=== PATIENT | male | born 1945 | race Caucasian/White ===

== ENCOUNTER 2022-11-11 12:38 | Outpatient (CLI) | payer MEDICARE | END 2022-11-11 23:59 | disposition critical access hospital (66) | LOC: EMS 12:38 | DX: R41.82 Altered mental status, unspecified (principal); R53.1 Weakness; R63.4 Abnormal weight loss; R63.8 Other symptoms and signs concerning food and fluid intake; R62.7 Adult failure to thrive; F03.90 Unspecified dementia, unspecified severity, without behavioral disturbance, psychotic disturbance, mood disturbance, and anxiety | CPT/HCPCS: A0425; A0429 ==

== ENCOUNTER 2022-11-11 13:00 | Observation (INO) | payer MEDICARE ==
[2022-11-11] MEDS ORDERED: SODIUM CHLORIDE 0.9% 1,000 ML IV STA ×2 (13:21→14:11)
[2022-11-11] MEDS ORDERED: SODIUM CHLORIDE 0.9% 500 ML IV STA (13:21)
[2022-11-11 13:36] LABS: BASOPHILS % (AUTO) 0.3 %; EOSINOPHILS # (AUTO) 0.1 10^3/uL (0.0-0.7); EOSINOPHILS % (AUTO) 0.5 %; HCT - HEMATOCRIT 46.8 % (42.0-52.0); HGB - HEMOGLOBIN 15.2 g/dL (14.0-18.0); LYMPHOCYTES # (AUTO) 0.8 10^3/uL (1.5-3.5); MEAN CORPUSCULAR HEMOGLOBIN 29.4 pg (27.0-31.0); MEAN CORPUSCULAR HGB CONC 32.5 g/dL (32.0-36.0); MEAN CORPUSCULAR VOLUME 90.5 fL (80.0-94.0); MEAN PLATELET VOLUME 10.9 fL (7.4-11.4); MONOCYTES % (AUTO) 8.1 %; NEUTROPHILS # (AUTO) 9.9 10^3/uL (1.5-6.6); NEUTROPHILS % (AUTO) 83.1 %; PLT - PLATELET COUNT 179 10^3/uL (130-450); RED BLOOD COUNT 5.17 10^6/uL (4.70-6.10); RED CELL DISTRIBUTION WIDTH 14.7 % (12.0-15.0); WHITE BLOOD COUNT 11.9 x10^3/uL (4.8-10.8)
--- NOTE | 2022-11-11 13:43 | ED Physician Documentation ---
History of Present Illness - Stated complaint Stated Complaint: AMS - Chief complaint Chief Complaint: Neuro - History obtained from History obtained from: Family (), EMS - History of Present Illness Timing: Other (several months, gradually worsening.) Pain level max: 0 Pain level now: 0 - Additonal information Additional information: 77-year-old male Brought in by EMS today after his called 911. 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 EMS does not know any medical history on the patient. They state that the told him he has dementia and has been declining progressively over the last 6 to 8 months. They state they do not know any other information. When the patient's arrived to the emergency department, she states that they are from [place] and have been here since COVID when he had a knee surgery in 2019. They have been trying to get back home but because of the patient's condition they have been unable to do so. She states that the patient quit drinking any fluid several days ago. She states he has had hardly anything to eat over the past 2 weeks. She states that they do not want feeding tube, CPR, dialysis, etc. She states that she has been speaking with [facility] but there [facility] is [facility], so they were told that if the patient is admitted to the hospital they can transfer him from [place] to [facility]. Review of Systems Constitutional: denies: Fever Nose: denies: Rhinorrhea / runny nose, Congestion Respiratory: denies: Cough GI: denies: Vomiting Skin: denies: Rash PD PAST MEDICAL HISTORY - Past Medical History Past Medical History: Yes Neuro: Dementia - Past Surgical History Past Surgical History: Yes Ortho: Knee replacement - Present Medications Home Medications: Ambulatory Orders Medication Instructions Recorded Confirmed Aspirin [Aspirin EC] 81 mg PO BID 11/11/22 11/11/22 Calcium Carbonate [Calcium] 600 mg PO QPM 11/11/22 11/11/22 Cholecalciferol (Vitamin D3) 2,000 unit PO QPM 11/11/22 11/11/22 [Vitamin D3] Colesevelam HCl [Welchol] 625 mg PO DAILY 11/11/22 11/11/22 Cyanocobalamin (Vitamin B-12) 2,500 mcg PO DAILY 11/11/22 11/11/22 [Vitamin B-12] Lipase/Protease/Amylase 1 PO DAILY 11/11/22 [Pancrelipase Dr 5,000/17,000/24,000 Retirement] Memantine [Namenda] 10 mg PO BID 11/11/22 11/11/22 Oxycodone HCl/Acetaminophen 1 each PO BID PRN 11/11/22 11/11/22 [Percocet 5-325 mg Tablet] Simvastatin [Zocor] 40 mg PO QPM 11/11/22 11/11/22 Terazosin [Hytrin] 5 mg PO QPM 11/11/22 11/11/22 Turmeric PO DAILY 11/11/22 - Allergies Allergies/Adverse Reactions: Allergies Allergy/AdvReac Type Severity Reaction Status Date / Time No Known Drug Allergies Allergy Verified 11/11/22 14:27 - Living Situation Living Situation: reports: With family Living Arrangement: reports: At home - Social History Does the pt smoke?: No Does the pt drink ETOH?: No Does the pt have substance abuse?: No - Family History Family history: reports: Non contributory PD ED PE NORMAL - Vitals Vital signs reviewed: Yes - General General: Other (Thin, frail, elderly male.) - HEENT HEENT: Other (Dry lips, for tongue, sunken eyes) - Neck Neck: Supple, no meningeal sign - Cardiac Cardiac: RRR - Respiratory Respiratory: No respiratory distress, Clear bilaterally - Abdomen Abdomen: Soft, Non tender, Non distended - Derm Derm: Other (cool, dry, poor skin turgor) - Extremities Extremities: No edema - Neuro Neuro: Other (non-responsive) Results - Vitals Vitals: Vital Signs - 24 hr 11/11/22 11/11/22 13:08 14:16 Temperature 36.8 C Heart Rate 102 H 92 Respiratory 16 14 Rate Blood Pressure 148/98 H 158/102 H O2 Saturation 95 95 Oxygen O2 Source Room air - EKG (time done) 1328 EKG releavant findings:: EKG personally interpreted by author of this note. Relevant findings are: Rate: Rate (enter#) (102) Rhythm: Sinus tachycardia, Other (PVC) Intervals: Normal VT QRS: Normal Ischemia: Normal ST segments - Labs Labs: Laboratory Tests 11/11/22 11/11/22 11/11/22 13:26 13:29 13:29 WBC 11.9 H RBC 5.17 Hgb 15.2 Hct 46.8 MCV 90.5 MCH 29.4 MCHC 32.5 RDW 14.7 Plt Count 179 MPV 10.9 Neut # (Auto) 9.9 H Lymph # (Auto) 0.8 L Saunders # (Auto) 1.0 Eos # (Auto) 0.1 Baso # (Auto) 0.0 Absolute Nucleated RBC 0.00 Nucleated RBC % 0.0 Sodium 141 Potassium 5.8 H Chloride 109 Carbon Dioxide 17 L Anion Gap 15.0 H BUN 122 H* Creatinine 13.2 H* Estimated GFR (MDRD) 4 L Glucose 127 H Calcium 8.7 Phosphorus 7.8 H Magnesium 2.8 Total Bilirubin 1.7 H AST 56 H ALT 48 Alkaline Phosphatase 83 Total Creatine Kinase 714 H Total Protein 7.0 Albumin 3.3 Globulin 3.7 Albumin/Globulin Ratio 0.9 L Lipase 24 Urine Color Urine Clarity Urine pH Ur Specific [place] Urine Protein Urine Glucose (UA) Urine Ketones Urine Occult Blood Urine Nitrite Urine Bilirubin Urine Urobilinogen Ur Leukocyte Esterase Urine RBC Urine WBC Ur Squamous Epith Cells Urine Bacteria Ur Microscopic Review Urine Culture Comments Nasal Adenovirus (PCR) NOT DETECTED Nasal B. parapertussis DNA (PCR) NOT DETECTED Nasal Coronavir 229E PCR NOT DETECTED Nasal Coronavir HKU1 PCR NOT DETECTED Nasal Coronavir NL63 PCR NOT DETECTED Nasal Coronavir OC43 PCR NOT DETECTED Nasal Enterovir/Rhinovir PCR NOT DETECTED Nasal Influenza B PCR NOT DETECTED Nasal Influenza A PCR NOT DETECTED Nasal Parainfluen 1 PCR NOT DETECTED Nasal Parainfluen 2 PCR NOT DETECTED Nasal Parainfluen 3 PCR NOT DETECTED Nasal Parainfluen 4 PCR NOT DETECTED Nasal RSV (PCR) NOT DETECTED Nasal B.pertussis DNA PCR NOT DETECTED Nasal C.pneumoniae (PCR) NOT DETECTED Jamal Human Metapneumo PCR NOT DETECTED Nasal M.pneumoniae (PCR) NOT DETECTED Nasal SARS-CoV-2 (PCR) NOT DETECTED 11/11/22 13:35 WBC RBC Hgb Hct MCV MCH MCHC RDW Plt Count MPV Neut # (Auto) Lymph # (Auto) Saunders # (Auto) Eos # (Auto) Baso # (Auto) Absolute Nucleated RBC Nucleated RBC % Sodium Potassium Chloride Carbon Dioxide Anion Gap BUN Creatinine Estimated GFR (MDRD) Glucose Calcium Phosphorus Magnesium Total Bilirubin AST ALT Alkaline Phosphatase Total Creatine Kinase Total Protein Albumin Globulin Albumin/Globulin Ratio Lipase Urine Color DARK YELLOW Urine Clarity CLEAR Urine pH 6.0 Ur Specific [place] 1.015 Urine Protein NEGATIVE Urine Glucose (UA) NEGATIVE Urine Ketones NEGATIVE Urine Occult Blood SMALL H Urine Nitrite NEGATIVE Urine Bilirubin NEGATIVE Urine Urobilinogen 0.2 (NORMAL) Ur Leukocyte Esterase NEGATIVE Urine RBC 0-5 Urine WBC 0-3 Ur Squamous Epith Cells NONE SEEN Urine Bacteria Rare Ur Microscopic Review INDICATED Urine Culture Comments NOT INDICATED Nasal Adenovirus (PCR) Nasal B. parapertussis DNA (PCR) Nasal Coronavir 229E PCR Nasal Coronavir HKU1 PCR Nasal Coronavir NL63 PCR Nasal Coronavir OC43 PCR Nasal Enterovir/Rhinovir PCR Nasal Influenza B PCR Nasal Influenza A PCR Nasal Parainfluen 1 PCR Nasal Parainfluen 2 PCR Nasal Parainfluen 3 PCR Nasal Parainfluen 4 PCR Nasal RSV (PCR) Nasal B.pertussis DNA PCR Nasal C.pneumoniae (PCR) Jamal Human Metapneumo PCR Nasal M.pneumoniae (PCR) Nasal SARS-CoV-2 (PCR) - Rads (name of study) cxr Relevant Findings:: Final report received, See rad report head Ct Relevant Findings:: Final report received, See rad report PD Medical Decision Making - ED course Complexity details: reviewed results, re-evaluated patient, considered differential, d/w family, d/w as400 consultant ED course: 77-year-old male with severe what appears to be 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 CBC shows an elevated white blood cell count at 11,900. Mainly neutrophils. Chemistry reveals a potassium of 5.8, BUN to creatinine ratio is severely elevated. Acute renal failure, creatinine 13.2. BUN 122 consistent with uremia and metabolic encephalopathy. Phosphorus is elevated at 7.8. Total CK is also elevated at 714. Urinalysis is consistent with dehydration as well. Patient was given IV fluids here. Discussed the poor prognosis with the patient's . She would like to try IV fluids. She does not want him to have dialysis, or any aerobic measures. Does not want central line and pressors. Discussed the case with the hospitalist, Dr. Piper who accepts. Social work will be consulted as well. Departure - Departure Disposition: 66 [facility] DC/Xfer Clinical Impression: Uremia, Dehydration, Hyperkalemia, Metabolic encephalopathy, Hyperphosphatemia Acute renal failure Qualifiers: Acute renal failure type: unspecified Qualified Code(s): N17.9 - Acute kidney failure, unspecified Dementia Qualifiers: Dementia type: unspecified type Dementia severity: severe Dementia behavioral or psychological symptom: without behavioral, psychotic, or mood disturbance or anxiety Qualified Code(s): F03.C0 - Unspecified dementia, severe, without behavioral disturbance, psychotic disturbance, mood disturbance, and anxiety Condition: Stable
[2022-11-11 13:51] LABS: BILIRUBIN,URINE NEGATIVE (NEGATIVE); GLUCOSE, URINE (UA) NEGATIVE (NEGATIVE); KETONES,URINE (UA) NEGATIVE (NEGATIVE); LEUKOCYTE ESTERASE, URINE NEGATIVE (NEGATIVE); NITRITE,URINE NEGATIVE (NEGATIVE); OCCULT BLOOD,URINE SMALL (NEGATIVE); PROTEIN,URINE NEGATIVE (NEGATIVE); UROBILINOGEN,URINE 0.2 (NORMAL) E.U./dL (NORMAL)
[2022-11-11 13:55] LABS: CLARITY,URINE CLEAR (CLEAR)
[2022-11-11 14:05] LABS: RBC,URINE 0-5 /HPF (0-5); WBC,URINE 0-3 /HPF (0-3)
[2022-11-11 14:06] LABS: BACTERIA,URINE Rare /HPF (None Seen); SQUAMOUS EPITHELIAL CELL,UR NONE SEEN (<= Few)
[2022-11-11 14:07] LABS: ALBUMIN 3.3 g/dL (3.2-5.5); ALBUMIN/GLOBULIN RATIO 0.9 (1.0-2.2); BILIRUBIN,TOTAL 1.7 mg/dL (0.2-1.0); CALCIUM 8.7 mg/dL (8.5-10.3); MAGNESIUM 2.8 mg/dL (1.7-2.8); PHOSPHORUS 7.8 mg/dL (2.5-4.6); POTASSIUM 5.8 mmol/L (3.5-5.0)
[2022-11-11 14:10] LABS: CREATININE 13.2 mg/dL (0.6-1.2)
--- NOTE | 2022-11-11 14:11 | XRAY Report ---
PROCEDURE: Chest 1 View X-Ray INDICATIONS: altered, aspiration TECHNIQUE: One view of the chest was acquired. COMPARISON: None. FINDINGS: Surgical changes and devices: None. Lungs and pleura: No pleural effusions or pneumothorax. Lungs are clear. Mediastinum: Mediastinal contours appear normal. Heart size is normal. Bones and chest wall: No suspicious bony lesions. Overlying soft tissues appear unremarkable. IMPRESSION: No acute pulmonary process. Reviewed by: Ev Mirza MD on 11/11/2022 2:10 PM PDT Approved by: Ev Mirza MD on 11/11/2022 2:10 PM PDT Station ID: [id number]
--- NOTE | 2022-11-11 14:39 | CT Report ---
PROCEDURE: HEAD WO INDICATIONS: altered mental status TECHNIQUE: Noncontrast 4.5 mm thick angled axial sections acquired from the foramen magnum to the vertex. For r adiation dose reduction, the following was used: automated exposure control, adjustment of mA and/or kV according to patient size. COMPARISON: None. FINDINGS: Image quality: Good CSF spaces: Basal cisterns are patent. Lateral ventricles are symmetric. Volume: Vascular calcifications. Periventricular white matter disease is commonly seen with chronic m icroangiopathy. Volume loss is present. These findings are moderate to severe Brain: No intracranial hemorrhage. Najera-white differentiation is grossly maintained. Craniofacial structures: No displaced fracture. Sinuses are clear. Orbits are intact. IMPRESSION: No acute radiographic abnormality. Likely chronic changes as above. If there is high concern for pare nchymal pathology, consider further evaluation with MRI. Reviewed by: Russell Sheffield MD on 11/11/2022 2:38 PM PDT Approved by: Russell Sheffield MD on 11/11/2022 2:38 PM PDT Station ID: [id number]
[2022-11-11 14:53] LABS: B. PARAPERTUSSIS- RESP PCR PAN NOT DETECTED; B. PERTUSSIS- RESP PCR PANEL NOT DETECTED; C. PNEUMONIAE- RESP PCR PANEL NOT DETECTED; CORONAVIRUS 229E-RESP PCR NOT DETECTED; CORONAVIRUS HKU1-RESP PCR NOT DETECTED; CORONAVIRUS NL63-RESP PCR NOT DETECTED; CORONAVIRUS OC43-RESP PCR NOT DETECTED; HUMAN METAPNEUMOVIRUS NOT DETECTED; INFLUENZA A- RESP PCR PANEL NOT DETECTED; INFLUENZA B - RESP PCR PANEL NOT DETECTED; M. PNEUMONIAE- RESP PCR PANEL NOT DETECTED; PARAINFLUENZA VIRUS 1 NOT DETECTED; PARAINFLUENZA VIRUS 2 NOT DETECTED; PARAINFLUENZA VIRUS 3 NOT DETECTED; PARAINFLUENZA VIRUS 4 NOT DETECTED; RHINOVIRUS/ENTEROVIRUS NOT DETECTED; RSV- RESP PCR PANEL NOT DETECTED; SARS-CoV-2 -RESP PCR PANEL NOT DETECTED
[2022-11-11] MEDS ORDERED: SODIUM CHLORIDE FLUSH 0.9% 10 ML SYRINGE IVP PRN (16:30)
[2022-11-11] MEDS ORDERED: ONDANSETRON ODT 4 MG TABLET TL PRN (16:30)
[2022-11-11] MEDS ORDERED: ONDANSETRON 4 MG/2 ML VIAL IVP PRN (16:30)
[2022-11-11] MEDS ORDERED: ACETAMINOPHEN 325 MG TABLET PO PRN (16:30)
--- NOTE | 2022-11-11 16:37 | HISTORY & PHYSICAL EXAMINATION ---
Chief Complaint - Chief Complaint Chief Complaint: unconscious History of Present Illness - Admitted From Admitted From:: son's home - History Obtained From Records Reviewed: [facility] History obtained from: Exam Limitations: he is unresponsive - History of Present Illness HPI Comment/Other: He is an elderly gentleman who has end-stage dementia. His past medical history is that of hyperlipidemia, hypertension, benign prostatic hypertrophy. And he takes pancreatic insufficiency enzymes. He had his knee replacement done in 2019 for osteoarthritis. But his could not take care of him by herself so she brought him up to stay with [place]. It was meant to be a temporary situation until he could get his rehab done and then they would go back to [facility]. However COVID happened. They have been in their son's home, living with him, since that time. And they really felt like they could not get him back to his house in [facility] because his dementia prohibited him from traveling safely. He is profoundly deaf and because of his dementia will throw out his hearing ai ds. He last had hearing aids in place months ago. 6 months ago he started fighting them with regards to dressing. Walking. Became less and less ambulatory. 3 weeks ago he did not want to eat. He did not want to get out of bed at all. Then starting November 08 he has not gotten out of bed at all, and has not eaten or drank anything. He has been asleep this entire time. One of their sons flew in because he felt like dad was going to so he wanted to see him. Today the family felt that they needed to bring him in. Potassium is 5.8. BUN 122, creatinine 13.2. Phosphorus 7.8. Total bili 1.7. White cell count is 11.9. Urinalysis does not have infection. PCR panel is negative for any viral illnesses. Chest x-ray has no acute cardiopulmonary process. And head CT has no acute radiographic abnormality. 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 Moderate to severe. The patient is unresponsive. Comatose. The emergency room provider and I discussed the case. Most likely he has the late stages of dementia, on top of that a benign prostatic hypertrophy by medication and description. He is stopped eating and drinking. He is now in renal failure. would like us to hydrate him. She does not want a lot of things done at home but she would like him to be hydrated so he can return to baseline status of walking, talking. History - Past Medical History Cardiovascular: reports: High cholesterol Respiratory: reports: None Neuro: reports: Dementia Endocrine/Autoimmune: reports: None GI: reports: Pancreatitis : reports: Benign prostate hypertrophy, Retention, Incontinence, Other HEENT: reports: Chronic hearing loss Psych: reports: Depression, Anxiety Musculoskeletal: reports: Osteoarthritis Derm: reports: None MRSA Hx?: No - Past Surgical History General: reports: Cholecystectomy Ortho: reports: Knee replacement - Family & Social History Living arrangement: At home Living Situation: With family - POLST Patient has POLST: Yes Meds/Allgy - Home Medications Home Medications: Ambulatory Orders Medication Instructions Recorded Confirmed Aspirin [Aspirin EC] 81 mg PO BID 11/11/22 11/11/22 Calcium Carbonate [Calcium] 600 mg PO QPM 11/11/22 11/11/22 Cholecalciferol (Vitamin D3) 2,000 unit PO QPM 11/11/22 11/11/22 [Vitamin D3] Colesevelam HCl [Welchol] 625 mg PO DAILY 11/11/22 11/11/22 Cyanocobalamin (Vitamin B-12) 2,500 mcg PO DAILY 11/11/22 11/11/22 [Vitamin B-12] Lipase/Protease/Amylase 1 PO DAILY 11/11/22 [Pancrelipase Dr 5,000/17,000/24,000 Retirement] Memantine [Namenda] 10 mg PO BID 11/11/22 11/11/22 Oxycodone HCl/Acetaminophen 1 each PO BID PRN 11/11/22 11/11/22 [Percocet 5-325 mg Tablet] Simvastatin [Zocor] 40 mg PO QPM 11/11/22 11/11/22 Terazosin [Hytrin] 5 mg PO QPM 11/11/22 11/11/22 Turmeric PO DAILY 11/11/22 - Allergies Allergies/Adverse Reactions: Allergies Allergy/AdvReac Type Severity Reaction Status Date / Time No Known Drug Allergies Allergy Verified 11/11/22 14:27 Review of Systems - Other Findings Other Findings: This patient is comatose, unable to do a review of systems Prior Level of Functionality: His dementia has made him completely dependent on other people to feed him, prompting him to dress, and prompt him to bathe. In the last few weeks that his deteriorated even further. He does not want to take a bath. He pushed his down the stairs a year ago. He does not want to eat. He has become bedbound. Exam - Vital Signs Reviewed Vital Signs: Yes Vital Signs: Vital Signs x48h Temp Pulse Resp BP Pulse Ox 11/11/22 15:54 90 15 160/98 H 95 11/11/22 14:16 92 14 158/102 H 95 11/11/22 13:08 36.8 C 102 H 16 148/98 H 95 - Physical Exam General Appearance: positive: Other (Obtunded, unresponsive to sternal rub, lay ing on his back, with rhonchorous open mouth breathing) Eyes Bilateral: positive: PERRL (Sluggish pupils) ENT: positive: Dry mucous membranes ( Since she is not currently having diarrhea, I am holding off giving her steroids.) Neck: positive: No JVD. negative: Lymphadenopathy (R), Lymphadenopathy (L), Stiff neck Respiratory: positive: No respiratory distress, Other (Again, laying on his back, open mouth breathing with rhonchorous tubular breath sounds in both lung corrales). negative: Wheezes, Rales, Rhonchi Cardiovascular: positive: Regular rate & rhythm, Systolic murmur Abdomen: positive: No distention, Abnml bowel sounds (Hypoactive.), Other (He is still unresponsive unable to assess for guarding or rebound) Skin: positive: Dry, Pallor Extremities: positive: Pedal edema Neurologic/Psychiatric: positive: Other (No spontaneous movement, no spontaneous verbalization, no opening of eyes even with sternal rub or Babinski's) Babinski Reflex: Right: Absent, Left: Absent Conclusion/Plan - Problem List (1) Metabolic encephalopathy Conclusion/Plan: Profound and due to #2 with uremia. There is no evidence of infection, no anemia, no stroke. His medication list is stable. There is been no new medications such as benzodiazepines or opioids. Observation status to see if he responds to hydration (2) Acute renal failure Conclusion/Plan: He appears to have a combination of benign prostatic hypertrophy by history, so he could have some obstruction. But more than anything else he just stopped eating and drinking. He has had gradually diminishing p.o. intake for weeks now. 3 weeks ago he took another sharp turn, and then on November 08 just stopped altogether. does not want tube feedings. She is wanting IV fluids to make him more alert so that she can take care of him for a few days. She is hoping that hydration will buy him a few days for her to make arrangements for caregivers and then transition to hospice. Case management is already aware of the case and is already working with [facility] for arrangements. Qualifiers: Acute renal failure type: with acute tubular necrosis Qualified Code(s): N17.0 - Acute kidney failure with tubular necrosis (3) Dehydration Conclusion/Plan: By description of the , he has had gradually diminishing p.o. intake. This has been ongoing for weeks if not months. In the last month has been severe and then starting November 08 he has had absolutely nothing to eat or drink. He has been in bed asleep since that time. Plan: No NG tube feeds IV fluids, normal saline, at 100 cc an hour Recheck BMP daily (4) Hyperkalemia Conclusion/Plan: Due to renal failure. I will give him an amp of D50 and 10 IV push regular insulin. Recheck BMP an hour later. (5) Hyperphosphatemia Conclusion/Plan: Again due to renal failure. He does not have tumor lysis syndrome, muscle necrosis. He is not ingesting large amounts of phosphates. He is not able to have urinary excretion that keeps pace with his phosphate intake. Treatment is usually saline infusion. In treating of the hypocalcemia if is present. My plan is to just hydrate him (6) Dementia Conclusion/Plan: Since he is unable to eat or drink anything, I will not be resuming his Namenda. Also, at this late stage, is not doing any good. Plan is for him to regain some alertness to be able to stand and walk at home. Not much more than that. Then will make plans for appropriate caregivers, and most likely transition to hospice Qualifiers: Dementia type: unspecified type Dementia severity: severe Dementia beha vioral or psychological symptom: without behavioral, psychotic, or mood disturbance or anxiety Qualified Code(s): F03.C0 - Unspecified dementia, severe, without behavioral disturbance, psychotic disturbance, mood disturbance, and anxiety - Lab Results Lab results reviewed: Yes Fish Bones: 11/11/22 13:29 11/11/22 13:29 - Diagnostic Imaging Results Diagnostic Imaging Results: positive: Final report reviewed Core Measures - Anticipated LOS I expect patient to be DC'd or transferred within 96 hours.: Yes - DVT/VTE - Prophylaxis VTE/DVT Prophylaxis med ordered at admit?: Yes
[2022-11-11] MEDS: SODIUM CHLORIDE 0.9% 1,000 ML IV SCH (17:55)
[2022-11-11] MEDS: SODIUM CHLORIDE FLUSH 0.9% 10 ML SYRINGE IVP SCH (17:56)
[2022-11-11] MEDS ORDERED: INSULIN REGULAR HUMAN 300 UNIT/3 ML VIAL IVP ONE (20:05)
[2022-11-11] MEDS ORDERED: DEXTROSE 50% ABBOJECT 25 GM/50 ML SYRINGE IVP ONE (20:05)
[2022-11-12] MEDS: SODIUM CHLORIDE 0.9% 1,000 ML IV SCH (02:02)
[2022-11-12 05:45] LABS: BASOPHILS % (AUTO) 0.3 %; EOSINOPHILS # (AUTO) 0.1 10^3/uL (0.0-0.7); HCT - HEMATOCRIT 44.6 % (42.0-52.0); HGB - HEMOGLOBIN 14.2 g/dL (14.0-18.0); LYMPHOCYTES # (AUTO) 0.7 10^3/uL (1.5-3.5); MEAN CORPUSCULAR HEMOGLOBIN 29.3 pg (27.0-31.0); MEAN CORPUSCULAR HGB CONC 31.8 g/dL (32.0-36.0); MEAN CORPUSCULAR VOLUME 92.1 fL (80.0-94.0); MEAN PLATELET VOLUME 10.4 fL (7.4-11.4); MONOCYTES # (AUTO) 0.8 10^3/uL (0.0-1.0); MONOCYTES % (AUTO) 7.9 %; NEUTROPHILS # (AUTO) 8.3 10^3/uL (1.5-6.6); NEUTROPHILS % (AUTO) 82.7 %; PLT - PLATELET COUNT 179 10^3/uL (130-450); RED BLOOD COUNT 4.84 10^6/uL (4.70-6.10); RED CELL DISTRIBUTION WIDTH 14.6 % (12.0-15.0); WHITE BLOOD COUNT 10.1 x10^3/uL (4.8-10.8)
[2022-11-12 06:26] LABS: CALCIUM 9.1 mg/dL (8.5-10.3); POTASSIUM 4.9 mmol/L (3.5-5.0)
[2022-11-12] MEDS: SODIUM CHLORIDE FLUSH 0.9% 10 ML SYRINGE IVP SCH ×3 (07:03→18:15)
[2022-11-12] MEDS ORDERED: ACETAMINOPHEN 1,000 MG/100 ML 1,000 MG/100 ML BAG IV PRN (07:51)
[2022-11-12] MEDS ORDERED: DEXTROSE 5%-0.45% NACL 1,000 ML IV SCH (08:00)
[2022-11-12] MEDS: ENOXAPARIN 30 MG/0.3 ML SYRINGE SUBQ SCH (08:54)
--- NOTE | 2022-11-12 10:51 | PHARMACY PROGRESS NOTE ---
- Best Possible Medication History Admit Date and Time: 11/11/22 1630 Processed by: Nursing Medication History completed: Yes Patient Interview: Pt unable to participate Secondary Source(s): Spouse/Significant other Med list updated by nursing As the person ultimately responsible for medication therapy, providers are able to order a medication from an existing home medication list in [facility] via the "Reconcile Routine" prior to Confirmation of that medication by production support developer. Such practice is discouraged except when the physician, in their clinical judgment, deems that a medical need exists for a medication without regard to previous use.
[2022-11-12] MEDS ORDERED: hydrALAZINE 10 MG TABLET PO ONE (11:02)
[2022-11-12] MEDS ORDERED: hydrALAZINE INJ 20 MG/ML VIAL IVP ONE (11:29)
--- NOTE | 2022-11-12 11:41 | PROVIDER PROGRESS NOTE ---
Assessment/Plan - Problem List (1) Metabolic encephalopathy Assessment/Plan: Profound and due to #uremia from dehydration on top of pre-existing severe dementia. There is no evidence of infection, no anemia, no stroke. There is been no new medications such as benzodiazepines or opioids used, and he has not been able to swallow any meds for about 2 weeks. He did awaken this morning afyter being given iv fluids, he looks around, is pulling at edges of a wash cloth with both hands. I told her that since he is unable to take hydration by mouth and has an advanced directive for no IV hydration, this is not life-sustainable. Plan: Remain in Observation status Social work to discuss discharge location with the today Will be requesting Hospice care for end-of-life after [facility] (2) Hypernatremia Labs were all reviewed. This is from his underlying dehydration and having rec eived normal saline yesterday, not hypotonic solution Plan: We will change to D5 half NS After the IV fluids were changed, I had the discussion with the about no more IV hydration, therefore all IV fluids will be stopped. We will stop ordering lab (3) Acute renal failure Conclusion/Plan: He appears to have a combination of benign prostatic hypertrophy by history, so he could have some obstruction. He has had gradually diminishing p.o. intake for weeks now. 3 weeks ago he took another sharp turn, and then on November 08 just stopped oral intake altogether. did say at admission, she does not want tube feedings. She wanted IV fluids to make him more alert so that she could take care of him for a few days. She was hoping that hydration will buy him a few days for her to make arrangements for caregivers and then transition to hospice. Plan: Case management is already aware of the case and is already working with [facility] for arrangements. Plan to avoid nephrotoxins Plan to stop ordering labs Qualifiers: Acute renal failure type: with acute tubular necrosis Qualified Code(s): N17.0 - Acute kidney failure with tubular necrosis (4) Dehydration Conclusion/Plan: By description of the , he has had gradually diminishing p.o. intake. This has been ongoing for weeks if not months. In the last month oral intake was poor and then starting November 08 he has had absolutely nothing to eat or drink. He has been in bed asleep since that time. IV fluids were normal saline, at 100 cc an hour Plan: No NG tube feeds After the IV fluids were changed, I had the discussion with the about no more IV hydration, therefore all IV fluids will be stopped. We will stop ordering lab (5) Acute urinary retention As per the addendum in the admission H&P Plan: Since he will be going to hospice, we will continue with keeping the [facility] in for his comfort (6) Hyperphosphatemia Conclusion/Plan: Due to renal failure. He does not have tumor lysis syndrome, muscle necrosis. He is not ingesting large amounts of phosphates. He is not able to have urinary excretion that keeps pace with his phosphate intake. Plan: Treatment is usually saline infusion and treating of the hypocalcemia if is present. Our plan was to just hydrate him IV hydration to be stopped today, as per the 's discussion with me today and she showed me his advanced directives on paper that she brought in Will stop checking labs (7) Dementia Conclusion/Plan: Since he is unable to eat or drink anything, we did not be resume his Namenda. Also, at this late stage, the Namenda is not doing any good. Plan is for him was to regain some alertness. The voiced she expected him to be able to stand and walk at home. Then wiould make plans for appropriate caregivers. I spoke to the today at bedside at length. The patient was not able to hear because of his [place] and did not participate in the discussion. I told her that since he is unable to take hydration by mouth and has an advanced directive for no IV hydration, this is not life-sustainable. Plan: Social work to discuss discharge location with the today Transition to hospice Qualifiers: Dementia type: unspecified type Dementia severity: severe Dementia behavioral or psychological symptom: without behavioral, psychotic, or mood disturbance or anxiety Qualified Code(s): F03.C0 - Unspecified dementia, severe, without behavioral disturbance, psychotic disturbance, mood disturbance, and anxiety (8) Hyperkalemia Conclusion/Plan: Resolved Due to renal failure. He got an amp of D50 and 10 IV push regular insulin. - Current Meds Current Meds: Current Medications Generic Name Dose Route Start Last Admin Trade Name Freq PRN Reason Stop Dose Admin Enoxaparin Sodium 30 mg 11/12/22 09:00 11/12/22 08:54 Enoxaparin 30 Mg/0.3 Ml Syringe SUBQ 30 mg DAILY EMMA Administration Dextrose/Sodium Chloride 1,000 mls @ 100 mls/hr 11/12/22 08:00 11/12/22 08:54 D5.45ns IV 100 mls/hr .Q10H EMMA Administration Sodium Chloride 10 ml 11/11/22 17:00 11/12/22 08:54 Sodium Chloride Flush 0.9% 10 Ml Syringe IVP Not Given 0100,0900,1700 EMMA - Lab Result Fish Bone Diagrams: 11/13/22 05:02 11/13/22 05:02 - Additional Planning My Orders: My Active Orders 11/12/22 Clinical Swallow Evaluation [ST] Routine 11/12/22 07:51 Acetaminophen 1,000 mg/100 ml [Acetaminophen] 1,000 mg in 100 ml IV Q6HR 11/12/22 07:58 DIET [NPO] [DIET] 11/12/22 08:00 Dextrose 5%-0.45% NaCl [D5.45ns] 1,000 ml IV 100 mls/hr 11/12/22 21:00 Terazosin [Hytrin] 5 mg PO QPM Subjective - Subjective Patient Reports: Other (He awoke, waved back when I waved to him.) Nursing Reports: Other (He is not able to swallow, per RN clinical swallow eval, pudding just pools in cheeks) Objective Vital Signs: Vital Signs - 24 hr 11/11/22 11/11/22 11/11/22 13:08 14:16 15:20 Temperature 36.8 C 36.5 C Heart Rate 102 H 92 Heart Rate [ Brachial] Heart Rate [ 91 Radial] Respiratory 16 14 18 Rate Blood Pressure 148/98 H 158/102 H Blood Pressure 165/90 H [Left Brachial artery] Blood Pressure [Right Brachial artery] O2 Saturation 95 95 99 11/11/22 11/11/22 11/11/22 15:54 18:53 20:47 Temperature 36.6 C Heart Rate 90 Heart Rate [ 86 Brachial] Heart Rate [ Radial] Respiratory 15 16 Rate Blood Pressure 160/98 H Blood Pressure 166/93 H 160/98 H [Left Brachial artery] Blood Pressure [Right Brachial artery] O2 Saturation 95 95 11/11/22 11/12/22 11/12/22 23:46 04:30 08:05 Temperature 36.6 C 36.5 C 36.2 C L Heart Rate Heart Rate [ 87 86 83 Brachial] Heart Rate [ Radial] Respiratory 16 18 20 Rate Blood Pressure Blood Pressure 160/84 H [Left Brachial artery] Blood Pressure 160/88 H 168/96 H [Right Brachial artery] O2 Saturation 96 98 98 Oxygen O2 Source Room air I&O (Last 24 Hrs): Intake and Output Totals x24h 11/10/22 11/11/22 11/12/22 23:59 23:59 23:59 Intake Total 2931.667 1065 Output Total 1625 1525 Balance 1306.667 -460 General: Alert, Other (Cachectic, sunken eyes, muscle wasting) HEENT: Mucous membr. moist/pink, Other (edentulous) Neck: Supple Neuro: Alert, Disoriented, Non Focal, Other ([place]. Not communicating. Did not pass swallow screen.) Cardiovascular: Regular rate Respiratory: No respiratory distress Abdomen: Soft Extremities: No clubbing, No edema - Results Results: Laboratory Results WBC 10.1 x10^3/uL (4.8-10.8) 11/12/22 05:33 RBC 4.84 10^6/uL (4.70-6.10) 11/12/22 05:33 Hgb 14.2 g/dL (14.0-18.0) 11/12/22 05:33 Hct 44.6 % (42.0-52.0) 11/12/22 05:33 MCV 92.1 fL (80.0-94.0) 11/12/22 05:33 MCH 29.3 pg (27.0-31.0) 11/12/22 05:33 MCHC 31.8 g/dL (32.0-36.0) L 11/12/22 05:33 RDW 14.6 % (12.0-15.0) 11/12/22 05:33 Plt Count 179 10^3/uL (130-450) 11/12/22 05:33 MPV 10.4 fL (7.4-11.4) 11/12/22 05:33 Neut # (Auto) 8.3 10^3/uL (1.5-6.6) H 11/12/22 05:33 Lymph # (Auto) 0.7 10^3/uL (1.5-3.5) L 11/12/22 05:33 [place] # (Auto) 0.8 10^3/uL (0.0-1.0) 11/12/22 05:33 Eos # (Auto) 0.1 10^3/uL (0.0-0.7) 11/12/22 05:33 Baso # (Auto) 0.0 10^3/uL (0.0-0.1) 11/12/22 05:33 Absolute Nucleated RBC 0.00 x10^3/uL 11/12/22 05:33 Nucleated RBC % 0.0 /100WBC 11/12/22 05:33 Sodium 151 mmol/L (135-145) H 11/12/22 05:33 Potassium 4.9 mmol/L (3.5-5.0) 11/12/22 05:33 Chloride 120 mmol/L (101-111) H* 11/12/22 05:33 Carbon Dioxide 22 mmol/L (21-32) 11/12/22 05:33 Anion Gap 9.0 (6-13) 11/12/22 05:33 BUN 98 mg/dL (6-20) H* 11/12/22 05:33 Creatinine 7.0 mg/dL (0.6-1.2) H* 11/12/22 05:33 Estimated GFR (MDRD) 8 (>89) L 11/12/22 05:33 Glucose 124 mg/dL (70-100) H 11/12/22 05:33 Calcium 9.1 mg/dL (8.5-10.3) 11/12/22 05:33 Phosphorus 7.8 mg/dL (2.5-4.6) H 11/11/22 13:29 Magnesium 2.8 mg/dL (1.7-2.8) 11/11/22 13:29 Total Bilirubin 1.7 mg/dL (0.2-1.0) H 11/11/22 13:29 AST 56 IU/L (10-42) H 11/11/22 13:29 ALT 48 IU/L (10-60) 11/11/22 13:29 Alkaline Phosphatase 83 IU/L (42-121) 11/11/22 13:29 Total Creatine Kinase 714 IU/L (22-269) H 11/11/22 13:29 Total Protein 7.0 g/dL (6.7-8.2) 11/11/22 13:29 Albumin 3.3 g/dL (3.2-5.5) 11/11/22 13:29 Globulin 3.7 g/dL (2.1-4.2) 11/11/22 13:29 Albumin/Globulin Ratio 0.9 (1.0-2.2) L 11/11/22 13:29 Lipase 24 U/L (22-51) 11/11/22 13:29 Urine Color DARK YELLOW 11/11/22 13:35 Urine Clarity CLEAR (CLEAR) 11/11/22 13:35 Urine pH 6.0 PH (5.0-7.5) 11/11/22 13:35 Ur Specific [place] 1.015 (1.002-1.030) 11/11/22 13:35 Urine Protein NEGATIVE mg/dL (NEGATIVE) 11/11/22 13:35 Urine Glucose (UA) NEGATIVE mg/dL (NEGATIVE) 11/11/22 13:35 Urine Ketones NEGATIVE mg/dL (NEGATIVE) 11/11/22 13:35 Urine Occult Blood SMALL (NEGATIVE) H 11/11/22 13:35 Urine Nitrite NEGATIVE (NEGATIVE) 11/11/22 13:35 Urine Bilirubin NEGATIVE (NEGATIVE) 11/11/22 13:35 Urine Urobilinogen 0.2 (NORMAL) E.U./dL (NORMAL) 11/11/22 13:35 Ur Leukocyte Esterase NEGATIVE (NEGATIVE) 11/11/22 13:35 Urine RBC 0-5 /HPF (0-5) 11/11/22 13:35 Urine WBC 0-3 /HPF (0-3) 11/11/22 13:35 Ur Squamous Epith Cells NONE SEEN (<= Few) 11/11/22 13:35 Urine Bacteria Rare /HPF (None Seen) 11/11/22 13:35 Ur Microscopic Review INDICATED 11/11/22 13:35 Urine Culture Comments NOT INDICATED 11/11/22 13:35 Nasal Adenovirus (PCR) NOT DETECTED 11/11/22 13:26 Nasal B. parapertussis DNA (PCR) NOT DETECTED 11/11/22 13:26 Nasal Coronavir 229E PCR NOT DETECTED 11/11/22 13:26 Nasal Coronavir HKU1 PCR NOT DETECTED 11/11/22 13:26 Nasal Coronavir NL63 PCR NOT DETECTED 11/11/22 13:26 Nasal Coronavir OC43 PCR NOT DETECTED 11/11/22 13:26 Nasal Enterovir/Rhinovir PCR NOT DETECTED 11/11/22 13:26 Nasal Influenza B PCR NOT DETECTED 11/11/22 13:26 Nasal Influenza A PCR NOT DETECTED 11/11/22 13:26 Nasal Parainfluen 1 PCR NOT DETECTED 11/11/22 13:26 Nasal Parainfluen 2 PCR NOT DETECTED 11/11/22 13:26 Nasal Parainfluen 3 PCR NOT DETECTED 11/11/22 13:26 Nasal Parainfluen 4 PCR NOT DETECTED 11/11/22 13:26 Nasal RSV (PCR) NOT DETECTED 11/11/22 13:26 Nasal B.pertussis DNA PCR NOT DETECTED 11/11/22 13:26 Nasal C.pneumoniae (PCR) NOT DETECTED 11/11/22 13:26 Jamal Human Metapneumo PCR NOT DETECTED 11/11/22 13:26 Nasal M.pneumoniae (PCR) NOT DETECTED 11/11/22 13:26 Nasal SARS-CoV-2 (PCR) NOT DETECTED 11/11/22 13:26
[2022-11-12] MEDS: TERAZOSIN 5 MG PO SCH (20:19)
[2022-11-13 05:33] LABS: BASOPHILS % (AUTO) 0.2 %; EOSINOPHILS % (AUTO) 0.1 %; HCT - HEMATOCRIT 48.4 % (42.0-52.0); HGB - HEMOGLOBIN 15.6 g/dL (14.0-18.0); LYMPHOCYTES # (AUTO) 0.7 10^3/uL (1.5-3.5); LYMPHOCYTES % (AUTO) 4.8 %; MEAN CORPUSCULAR HEMOGLOBIN 29.9 pg (27.0-31.0); MEAN CORPUSCULAR HGB CONC 32.2 g/dL (32.0-36.0); MEAN CORPUSCULAR VOLUME 92.9 fL (80.0-94.0); MEAN PLATELET VOLUME 10.4 fL (7.4-11.4); MONOCYTES % (AUTO) 6.7 %; NEUTROPHILS # (AUTO) 12.9 10^3/uL (1.5-6.6); NEUTROPHILS % (AUTO) 87.4 %; PLT - PLATELET COUNT 220 10^3/uL (130-450); RED BLOOD COUNT 5.21 10^6/uL (4.70-6.10); RED CELL DISTRIBUTION WIDTH 14.6 % (12.0-15.0); WHITE BLOOD COUNT 14.7 x10^3/uL (4.8-10.8)
[2022-11-13 05:42] LABS: CALCIUM 9.5 mg/dL (8.5-10.3); POTASSIUM 3.7 mmol/L (3.5-5.0)
[2022-11-13] MEDS: SODIUM CHLORIDE FLUSH 0.9% 10 ML SYRINGE IVP SCH ×3 (05:47→17:20)
[2022-11-13] MEDS: ENOXAPARIN 30 MG/0.3 ML SYRINGE SUBQ SCH (08:50)
--- NOTE | 2022-11-13 16:29 | PROVIDER PROGRESS NOTE ---
Assessment/Plan - Problem List (1) Metabolic encephalopathy Assessment/Plan: Profound and due to uremia, hypernatremia, on top of pre-existing severe dementia. There is no evidence of infection, no anemia, no stroke. There is been no new medications such as benzodiazepines or opioids used, and he has not been able to swallow any meds for about 2 weeks. He did awaken this morning afyter being given iv fluids, he looks around, is pulling at edges of a wash cloth with both hands. I told her that since he is unable to take hydration by mouth and has an advanced directive for no IV hydration, this is not life-sustainable. Social work discussed discharge location with the and she has decided on [facility] I placed referral for Hospice care for end-of-life after [facility] Plan: Remain in Observation status Will stop freq lab draws, VS checks (2) Hypernatremia Labs were all reviewed. This is from his underlying dehydration and having received normal saline yesterday, not hypotonic solution We changed NS to to D5 half NS yesterday. After the IV fluids were changed, I had the discussion with the about no more IV hydration, then all IV fluids were stopped. Plan: We will stop ordering lab (3) Acute renal failure Conclusion/Plan: He appears to have a combination of benign prostatic hypertrophy by history, so he could have some obstruction. He has had gradually diminishing p.o. intake for weeks now. 3 weeks ago he took another sharp turn, and then on November 08 just stopped oral intake altogether. did say at admission, she does not want tube feedings. She wanted IV fluids to make him more alert so that she could take care of him for a few days. She was hoping that hydration will buy him a few days for her to make arrangements for caregivers and then transition to hospice. Plan: Case management is already aware of the case and is already working with [facility] for arrangements. Plan to stop ordering labs Qualifiers: Acute renal failure type: with acute tubular necrosis Qualified Code(s): N17.0 - Acute kidney failure with tubular necrosis (4) Dehydration Conclusion/Plan: By description of the , he has had gradually diminishing p.o. intake. This has been ongoing for weeks if not months. In the last month oral intake was poor and then starting November 08 he has had absolutely nothing to eat or drink. He has been in bed asleep since that time. IV fluids were begun. No NG tube feeds are desired After the IV fluids were changed, I had the discussion with the about no more IV hydration, then all IV fluids were stopped. Plan: We will stop ordering labs (5) Acute urinary retention As per the addendum in the admission H&P Plan: Since he will be going to Hospice, we will continue with the [facility] in for his comfort (6) Hyperphosphatemia Conclusion/Plan: Due to renal failure. He does not have tumor lysis syndrome, muscle necrosis. He is not ingesting large amounts of phosphates. He is not able to have urinary excretion that keeps pace with his phosphate intake. Treatment is usually saline infusion and treating of the hypocalcemia if is present. Our plan was to just hydrate him IV hydration was stopped, as per the 's discussion with me today and she showed me his advanced directives on paper that she brought in Plan: Will stop checking labs (7) Dementia Conclusion/Plan: Since he is unable to eat or drink anything, we did not be resume his Namenda. Also, at this late stage, the Namenda is not doing any good. Plan is for him was to regain some alertness. The voiced she expected him to be able to stand and walk at home. Then wiould make plans for appropriate caregivers. I spoke to the today at bedside at length. The patient was not able to hear because of his [place] and did not participate in the discussion. I told her that since he is unable to take hydration by mouth and has an advanced directive for no IV hydration, this is not life-sustainable. Social work discussed discharge location with the Plan: Transition to Hospice for end of life Qualifiers: Dementia type: unspecified type Dementia severity: severe Dementia behavioral or psychological symptom: without behavioral, psychotic, or mood disturbance or anxiety Qualified Code(s): F03.C0 - Unspecified dementia, severe, without behavioral disturbance, psychotic disturbance, mood disturbance, and anxiety (8) Hyperkalemia Conclusion/Plan: Resolved Due to renal failure. He got an amp of D50 and 10 IV push regular insulin. - Current Meds Current Meds: Current Medications Generic Name Dose Route Start Last Admin Trade Name Freq PRN Reason Stop Dose Admin Enoxaparin Sodium 30 mg 11/12/22 09:00 11/13/22 08:50 Enoxaparin 30 Mg/0.3 Ml Syringe SUBQ 30 mg DAILY EMMA Administration Terazosin [Hytrin] 1 each 11/12/22 21:00 11/12/22 20:19 5 Mg Capsule PO Not Given QPM EMMA Sodium Chloride 10 ml 11/11/22 17:00 11/13/22 08:51 Sodium Chloride Flush 0.9% 10 Ml Syringe IVP 10 ml 0100,0900,1700 EMMA Administration - Lab Result Fish Bone Diagrams: 11/13/22 05:02 11/13/22 05:02 - Additional Planning My Orders: My Active Orders 11/12/22 21:00 Patient Own Med [Patient Own Medication] 1 each PO QPM Subjective - Subjective Patient Reports: Resting Comfortably, No Complaints Objective Vital Signs: Vital Signs - 24 hr 11/12/22 11/12/22 11/13/22 16:41 23:49 07:55 Temperature 36.5 C 36.9 C Heart Rate [ 91 87 Brachial] Respiratory 16 20 Rate Blood Pressure 157/98 H [Left Brachial artery] Blood Pressure 160/80 H 160/98 H [Right Brachial artery] O2 Saturation 98 94 11/13/22 15:49 Temperature 37.5 C Heart Rate [ 93 Brachial] Respiratory 20 Rate Blood Pressure [Left Brachial artery] Blood Pressure 150/90 H [Right Brachial artery] O2 Saturation 100 Oxygen O2 Source Room air I&O (Last 24 Hrs): Intake and Output Totals x24h 11/11/22 11/12/22 11/13/22 23:59 23:59 23:59 Intake Total 2931.667 1375 Output Total 1625 4275 1300 Balance 1306.667 -2900 -1300 General: No acute distress, Other (Awake) HEENT: Other (Dry oral mucosa, poor dentition, sunken eyes, temporal muscle wasting) Neuro: Alert, Non Focal, Other ([place], moving all extremities spontaneously, does not communicate, does not follow directions) Cardiovascular: No murmurs Respiratory: No respiratory distress Abdomen: No tenderness Extremities: No clubbing, No edema, No tenderness/swelling, Other (Has muscle wasting and skin tenting) - Results Results: Laboratory Results WBC 14.7 x10^3/uL (4.8-10.8) H 11/13/22 05:02 RBC 5.21 10^6/uL (4.70-6.10) 11/13/22 05:02 Hgb 15.6 g/dL (14.0-18.0) 11/13/22 05:02 Hct 48.4 % (42.0-52.0) 11/13/22 05:02 MCV 92.9 fL (80.0-94.0) 11/13/22 05:02 MCH 29.9 pg (27.0-31.0) 11/13/22 05:02 MCHC 32.2 g/dL (32.0-36.0) 11/13/22 05:02 RDW 14.6 % (12.0-15.0) 11/13/22 05:02 Plt Count 220 10^3/uL (130-450) 11/13/22 05:02 MPV 10.4 fL (7.4-11.4) 11/13/22 05:02 Neut # (Auto) 12.9 10^3/uL (1.5-6.6) H 11/13/22 05:02 Lymph # (Auto) 0.7 10^3/uL (1.5-3.5) L 11/13/22 05:02 [place] # (Auto) 1.0 10^3/uL (0.0-1.0) 11/13/22 05:02 Eos # (Auto) 0.0 10^3/uL (0.0-0.7) 11/13/22 05:02 Baso # (Auto) 0.0 10^3/uL (0.0-0.1) 11/13/22 05:02 Absolute Nucleated RBC 0.00 x10^3/uL 11/13/22 05:02 Nucleated RBC % 0.0 /100WBC 11/13/22 05:02 Sodium 155 mmol/L (135-145) H* 11/13/22 05:02 Potassium 3.7 mmol/L (3.5-5.0) 11/13/22 05:02 Chloride 127 mmol/L (101-111) H* 11/13/22 05:02 Carbon Dioxide 21 mmol/L (21-32) 11/13/22 05:02 Anion Gap 7.0 (6-13) 11/13/22 05:02 BUN 53 mg/dL (6-20) H 11/13/22 05:02 Creatinine 2.0 mg/dL (0.6-1.2) H 11/13/22 05:02 Estimated GFR (MDRD) 33 (>89) L 11/13/22 05:02 Glucose 113 mg/dL (70-100) H 11/13/22 05:02 Calcium 9.5 mg/dL (8.5-10.3) 11/13/22 05:02 Phosphorus 7.8 mg/dL (2.5-4.6) H 11/11/22 13:29 Magnesium 2.8 mg/dL (1.7-2.8) 11/11/22 13:29 Total Bilirubin 1.7 mg/dL (0.2-1.0) H 11/11/22 13:29 AST 56 IU/L (10-42) H 11/11/22 13:29 ALT 48 IU/L (10-60) 11/11/22 13:29 Alkaline Phosphatase 83 IU/L (42-121) 11/11/22 13:29 Total Creatine Kinase 714 IU/L (22-269) H 11/11/22 13:29 Total Protein 7.0 g/dL (6.7-8.2) 11/11/22 13:29 Albumin 3.3 g/dL (3.2-5.5) 11/11/22 13:29 Globulin 3.7 g/dL (2.1-4.2) 11/11/22 13:29 Albumin/Globulin Ratio 0.9 (1.0-2.2) L 11/11/22 13:29 Lipase 24 U/L (22-51) 11/11/22 13:29 Urine Color DARK YELLOW 11/11/22 13:35 Urine Clarity CLEAR (CLEAR) 11/11/22 13:35 Urine pH 6.0 PH (5.0-7.5) 11/11/22 13:35 Ur Specific [place] 1.015 (1.002-1.030) 11/11/22 13:35 Urine Protein NEGATIVE mg/dL (NEGATIVE) 11/11/22 13:35 Urine Glucose (UA) NEGATIVE mg/dL (NEGATIVE) 11/11/22 13:35 Urine Ketones NEGATIVE mg/dL (NEGATIVE) 11/11/22 13:35 Urine Occult Blood SMALL (NEGATIVE) H 11/11/22 13:35 Urine Nitrite NEGATIVE (NEGATIVE) 11/11/22 13:35 Urine Bilirubin NEGATIVE (NEGATIVE) 11/11/22 13:35 Urine Urobilinogen 0.2 (NORMAL) E.U./dL (NORMAL) 11/11/22 13:35 Ur Leukocyte Esterase NEGATIVE (NEGATIVE) 11/11/22 13:35 Urine RBC 0-5 /HPF (0-5) 11/11/22 13:35 Urine WBC 0-3 /HPF (0-3) 11/11/22 13:35 Ur Squamous Epith Cells NONE SEEN (<= Few) 11/11/22 13:35 Urine Bacteria Rare /HPF (None Seen) 11/11/22 13:35 Ur Microscopic Review INDICATED 11/11/22 13:35 Urine Culture Comments NOT INDICATED 11/11/22 13:35 Nasal Adenovirus (PCR) NOT DETECTED 11/11/22 13:26 Nasal B. parapertussis DNA (PCR) NOT DETECTED 11/11/22 13:26 Nasal Coronavir 229E PCR NOT DETECTED 11/11/22 13:26 Nasal Coronavir HKU1 PCR NOT DETECTED 11/11/22 13:26 Nasal Coronavir NL63 PCR NOT DETECTED 11/11/22 13:26 Nasal Coronavir OC43 PCR NOT DETECTED 11/11/22 13:26 Nasal Enterovir/Rhinovir PCR NOT DETECTED 11/11/22 13:26 Nasal Influenza B PCR NOT DETECTED 11/11/22 13:26 Nasal Influenza A PCR NOT DETECTED 11/11/22 13:26 Nasal Parainfluen 1 PCR NOT DETECTED 11/11/22 13:26 Nasal Parainfluen 2 PCR NOT DETECTED 11/11/22 13:26 Nasal Parainfluen 3 PCR NOT DETECTED 11/11/22 13:26 Nasal Parainfluen 4 PCR NOT DETECTED 11/11/22 13:26 Nasal RSV (PCR) NOT DETECTED 11/11/22 13:26 Nasal B.pertussis DNA PCR NOT DETECTED 11/11/22 13:26 Nasal C.pneumoniae (PCR) NOT DETECTED 11/11/22 13:26 Jamal Human Metapneumo PCR NOT DETECTED 11/11/22 13:26 Nasal M.pneumoniae (PCR) NOT DETECTED 11/11/22 13:26 Nasal SARS-CoV-2 (PCR) NOT DETECTED 11/11/22 13:26
--- NOTE | 2022-11-13 19:11 | Discharge Plan ---
Discharge Plan Problem Reviewed?: Yes Disposition: 03 [facility] DC/Xfer Condition: Critical Prescriptions: Haloperidol Oral Soln [Haldol Oral Soln] 1 mg PO Q6H PRN #15 ml PRN Reason: As Needed Per Provider Orders Hyoscyamine Sulfate 0.125 mg PO Q4H PRN #12 tab PRN Reason: As Needed Per Provider Orders Morphine Oral Soln [Roxanol] 5 mg PO Q4H PRN #30 ml PRN Reason: As Needed Per Provider Orders Acetaminophen [Tylenol] 325 - 650 mg [place] Q6H PRN #4 supp PRN Reason: As Needed Per Provider Orders Activity Restrictions: Bed rest Health Concerns: Patient was admitted with obtundation, partially from dehydration. He did martha mati after a day of IV hydration. The discussion was had with the , regarding his severe dementia, failure to take in any oral liquids or diet for 3 weeks and his previously stated desire to not get IV hydration, giving him a poor prognosis. After reviewing this with the , he will be transitioning to Hospice for end-of-life care. Plan of Treatment: Comfort care for end-of-life. Care Goals: As above. Assessment: The is in agreement with the plan. Additional Instructions or Follow Up instructions: Patient will be discharged with a (new) [facility]. needs instructions regarding [facility] care. No Smoking: If you smoke, Please STOP! Call for help. Follow-up with: Rose Meng MD [Provider Admit Priv/Credential] -
[2022-11-14] MEDS: SODIUM CHLORIDE FLUSH 0.9% 10 ML SYRINGE IVP SCH ×2 (01:15→08:32)
[2022-11-14] MEDS: TERAZOSIN 5 MG PO SCH (01:15)
[2022-11-14] MEDS: ENOXAPARIN 30 MG/0.3 ML SYRINGE SUBQ SCH (08:32)
--- NOTE | 2022-11-14 08:44 | DISCHARGE SUMMARY ---
Discharge Summary Admit Date: 11/11/22 Discharge Date: 11/14/22 Discharging Provider: Dr Vilma Franco Primary Care Provider: None Condition at Discharge: Critical Discharge Disposition: 50 Hospice/Home DC/Xfer Discharge [facility] Name: [facility] - HPI History of Present Illness: He is an elderly gentleman who has end-stage dementia. His past medical history is that of hyperlipidemia, hypertension, benign prostatic hypertrophy. And he takes pancreatic insufficiency enzymes. He had his knee replacement done in 2019 for osteoarthritis. But his could not take care of him by herself so she brought him up to stay with their son here on the [place]. It was meant to be a temporary situation until he could get his rehab done and then they would go back to [facility]. However COVID happened. They have been in their son's home, living with him, since that time. And they really felt like they could not get him back to his house in [facility] because his dementia prohibited him from traveling safely. He is profoundly deaf and because of his dementia will throw out his hearing aids. He last had hearing aids in place months ago. 6 months ago he started fighting them with regards to dressing. Walking. Became less and less ambulatory. 3 weeks ago he did not want to eat. He did not want to get out of bed at all. Then starting November 08 he has not gotten out of bed at all, and has not eaten or drank anything. He has been asleep this entire time. One of their sons flew in because he felt like dad was going to so he wanted to see him. Today the family felt that they needed to bring him in. Potassium is 5.8. BUN 122, creatinine 13.2. Phosphorus 7.8. Total bili 1.7. White cell count is 11.9. Urinalysis does not have infection. PCR panel is negative for any viral illnesses. Chest x-ray has no acute cardiopulmonary process. And head CT has no acute radiographic abnormality. 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 Moderate to severe. The patient is unresponsive. Comatose. The emergency room provider and I discussed the case. Most likely he has the late stages of dementia, on top of that a benign prostatic hypertrophy by medication and description. He is stopped eating and drinking. He is now in renal failure. would like us to hydrate him. She does not want a lot of things done at home but she would like him to be hydrated so he can return to baseline status of walking, talking. - HOSPITAL COURSE Hospital Course: (1) Metabolic encephalopathy He was obtunded but did awaken after a day of IV hydration, but had his previous confusion and was non-communicative, could not swallow and is bedbound. (2) Dementia, severe As per Hx. His brought in his Advanced Care Directives, showing he wanted no iv hydration, therefore no more iv fluids were given. (3) Hypernatremia Patient was admitted with obtundation, and sodium was 141. Despite a day of IV hydration, Na was 151>> 55 at discharge, since iv fluids were stopped. (4) Acute renal failure BUN/creat were 122/13>> 98/7 after a day of iv hydration, and were 53/2 at discharge. (5) Dehydration Patient was admitted with obtundation, partially from dehydration. He did aw aken after a day of IV hydration. (6) Acute urinary retention A Mills catheter was placed at admission, and for comfort measures, he was discharged with this. (7) Hyperphosphatemia Likely from dehydration and LEX. (8) Hyperkalemia From LEX. He received D50 and Insulin and K improved. (9) Comfort measures only status The discussion was had with the , regarding his severe dementia, failure to take in any oral liquids or diet for 3 weeks and his previously stated desire to not get IV hydration, giving him a poor prognosis. After reviewing this with the , he was transitioned to comfort care and Hospice was arranged at [facility] for end-of-life care. - ALLERGIES Allergies/Adverse Reactions: Allergies Allergy/AdvReac Type Severity Reaction Status Date / Time No Known Drug Allergies Allergy Verified 11/11/22 14:27 - MEDICATIONS Home Medications: Ambulatory Orders Medication Instructions Recorded Confirmed Acetaminophen [Tylenol] 325 - 650 mg MA Q6H PRN #4 supp 11/13/22 Haloperidol Oral Soln [Haldol Oral 1 mg PO Q6H PRN #15 ml 11/13/22 Soln] Hyoscyamine Sulfate 0.125 mg PO Q4H PRN #12 tab 11/13/22 Morphine Oral Soln [Roxanol] 5 mg PO Q4H PRN #30 ml 11/13/22 - PHYSICAL EXAM AT DISCHARGE General Appearance: positive: No acute distress, Alert, Other (Non- communicative, cachectic, male pattern baldness) Eyes Bilateral: positive: EOMI, Other (Sunken eyes, temporal wasting.) ENT: positive: Dry mucous membranes Neck: positive: Nml inspection, Other (Muscle wasting) Respiratory: positive: No respiratory distress Cardiovascular: positive: No murmur Abdomen: positive: Non-tender, No distention Skin: positive: Warm, Dry, Pallor Extremities: positive: Non-tender, No pedal edema Neurologic/Psychiatric: positive: Other (Awake, non-communicative, cannot swallow, moving all extrem spontaneously, pulling on sheets with his fingers.) - LABS Result Diagrams: 11/13/22 05:02 11/13/22 05:02 - FOLLOW UP Follow Up: Hospice care for end of life is planned. - TIME SPENT Time Spent in Discharge (Minutes): 40
[2022-11-14 09:46] VITALS: BP 161/89
--- NOTE | 2022-11-14 13:31 | Discharge Plan ---
"Discharge Plan for SNF / [facility] - Discharge Plan And Transition Orders Problem Reviewed?: Yes Disposition: 50 Hospice/Home DC/Xfer Condition: Critical Allergies and Adverse Reactions: Allergies Allergy/AdvReac Type Severity Reaction Status Date / Time No Known Drug Allergies Allergy Verified 11/11/22 14:27 Health Concerns: Patient was admitted with obtundation, partially from dehydration. He did awaken after a day of IV hydration. The discussion was had with the , regarding his severe dementia, failure to take in any oral liquids or diet for 3 weeks and his previously stated desire to not get IV hydration, giving him a poor prognosis. After reviewing this with the , he will be transitioning to Hospice for end-of-life care. Plan of Treatment: Comfort care for end-of-life. Care Goals: As above. Assessment: The is in agreement with the plan. - SNF / [facility] Transition Orders Admit to (Facility): [facility] Under the care of (Name): Dr Meng, Hospice Discharge Diagnosis: (1) Metabolic encephalopathy (2) Dementia, severe (3) Hypernatremia (4) Acute renal failure (5) Dehydration (6) Acute urinary retention (7) Hyperphosphatemia (8) Hyperkalemia (9) Comfort measures only status Medicare Certification Statement: I certify that [facility] correction care is medically necessary on a continuing basis for any of the conditions for which she/he is receiving care du ring hospitalization. Other Notification Orders: Call PCP immediately if patient develops dyspnea, chest pain/tightness or edema. Additional Bowel Program Orders: If no BM after 2 days, nurse may give M.O.M. 30ml PO PRN and/or ducolax Supp 1 KS and/or MABEL 250mg P.O., and/or senna 1-2 tabs PO. On day 3 nurse may give repeat above order until residents constipation is resolved. Annual Influenza Vaccine (between Apr 11 and November 08): No Two-step PPD per [facility] [id number] or approved exception documents: No Treatments & Other Orders: Mills care per routine Medication Orders: PLEASE REFER TO THE DISCHARGE MEDICATION LIST. Insulin Orders?: No - Medications New Prescriptions: Haloperidol Oral Soln [Haldol Oral Soln] 1 mg PO Q6H PRN #15 ml PRN Reason: As Needed Per Provider Orders Hyoscyamine Sulfate 0.125 mg PO Q4H PRN #12 tab PRN Reason: As Needed Per Provider Orders Morphine Oral Soln [Roxanol] 5 mg PO Q4H PRN #30 ml PRN Reason: As Needed Per Provider Orders Acetaminophen [Tylenol] 325 - 650 mg KS Q6H PRN #4 supp PRN Reason: As Needed Per Provider Orders - Diet Type: NPO May have monthly special meal: No - Therapies | Activity Activity: Activity as Tolerated Weight Bearing: No Weight Additional Instructions: Patient will be discharged with a (new) Mills."
[2022-11-14] MEDS ORDERED: TERAZOSIN 2 MG CAPSULE PO SCH (21:00)
[2022-11-14] MEDS ORDERED: TERAZOSIN 1 MG CAPSULE PO SCH (21:00)
== END 2022-11-14 14:21 | disposition hospice, home (50) ==
LOC: ED 13:00 → MS2 16:30
PROVIDERS: ADMIT Specialist; ATTEND Internal Medicine
DX: N17.0 Acute kidney failure with tubular necrosis (principal); N40.1 Benign prostatic hyperplasia with lower urinary tract symptoms; R33.8 Other retention of urine; N39.498 Other specified urinary incontinence; E86.0 Dehydration; G93.41 Metabolic encephalopathy; R40.20 Unspecified coma; E87.5 Hyperkalemia; E83.39 Other disorders of phosphorus metabolism; F03.C0 Unspecified dementia, severe, without behavioral disturbance, psychotic disturbance, mood disturbance, and anxiety; R64 Cachexia; I10 Essential (primary) hypertension; H91.90 Unspecified hearing loss, unspecified ear; E87.0 Hyperosmolality and hypernatremia; Z74.01 Bed confinement status; Z51.5 Encounter for palliative care; Z66 Do not resuscitate; Z20.822 Contact with and (suspected) exposure to COVID-19
CPT/HCPCS: 36415; 51701; 70450; 71045; 80048; 80053; 81001; 82550; 83690; 83735; 84100; 85025; 87633; 93005; 96361; 96372; 96374; 99285; G0378; J1650; J1815; 81003; 87086

== ENCOUNTER 2022-11-14 14:19 | Outpatient (CLI) | payer MEDICARE | END 2022-11-14 14:20 | disposition home or self-care (01) | LOC: EMS 14:19 | PROVIDERS: ATTEND Internal Medicine | DX: Z51.5 Encounter for palliative care (principal); R41.0 Disorientation, unspecified; N19 Unspecified kidney failure; R33.9 Retention of urine, unspecified; Z74.01 Bed confinement status; F03.90 Unspecified dementia, unspecified severity, without behavioral disturbance, psychotic disturbance, mood disturbance, and anxiety | CPT/HCPCS: A0425; A0428 ==